=== PATIENT | female | born 1995 | race Two or more races ===

== ENCOUNTER 2017-11-19 05:20 | Emergency (ER) | payer BC ==
[2017-11-19] MEDS ORDERED: Metoclopramide IV* 5 MG/ML 2 ML VIAL IV SLOW PU ONE (05:44)
[2017-11-19] MEDS ORDERED: NS 0.9% 1000 ML* 1,000 ML IV ONE (05:44)
[2017-11-19 06:17] LABS: ABS Basophils 0.1 10^3/ul (0-0.2); ABS Eosinophils 0 10^3/ul (0-0.6); ABS Lymphocytes 0.3 10^3/ul (1.0-4.8); ABS Monocytes 0.6 10^3/ul (0-0.8); ABS Neutrophils 9.9 10^3/ul (1.5-7.7); ABS Nucleated RBC 0 10^3/ul; Eosinophil % 0.1 % (0-6); Hematocrit 44 % (35-47); Hemoglobin 15.2 g/dl (12.0-16.0); Lymphocyte % 2.8 % (25-47); Mean Corpuscular HGB Conc 34 g/dl (31-36); Mean Corpuscular Hemoglobin 31 pg (27-31); Mean Corpuscular Volume 91 fL (80-97); Mean Platelet Volume 8 um3 (7.4-10.4); Nucleated Red Blood Cells % 0.2; Platelet Count 382 10^3/ul (150-450); Red Blood Count 4.87 10^6/ul (4.0-5.4); Red Cell Distribution Width 13 % (10.5-15); White Blood Count 10.8 10^3/ul (3.5-10.8)
[2017-11-19] MEDS ORDERED: Iohexol 300* (CONTRAST) 10 ML SDV IV ONE (07:42)
[2017-11-19 08:05] LABS: Urine Appearance Clear; Urine Blood Negative (Negative); Urine Color Yellow; Urine Ketones 2+ (Negative); Urine Protein Negative (Negative); Urine Specific Gravity 1.013 (1.010-1.030); Urine Urobilinogen Negative (Negative)
--- NOTE | 2017-11-19 08:33 | RAD ---
INDICATION: Vomiting. Cough. COMPARISON: No relevant prior exams available on the [facility] PACS for comparison. TECHNIQUE: Multidetector CT images were obtained from the lung bases to the ischial tuberosities with 76 mL Omnipaque 300 IV and oral contrast. Multiplanar reformation. REPORT: Unremarkable visualized inferior thorax. The liver, normally distended gallbladder, pancreas, and spleen are unremarkable. Negative for CT abnormality of the upper GI. Top normal diameter of the jejunal bowel loops at the LEFT abdomen with suggestion of long segment mild mucosal thickening. Negative for conspicuous associated perienteric inflammatory change. Negative for delay in distal propagation of contrast to suggest bowel obstruction. Unremarkable communicating partially contrast opacified appendix visualized along the RIGHT pelvic sidewall. Enteric contrast extends to the proximal sigmoid colon. Moderate stool at the sigmoid colon and rectum. Physiologic trace fluid in the cul-de-sac. Negative for free air or hernias. Normal adrenal glands. Unremarkable kidneys with symmetric nephrograms and pyelograms. No abnormality along the course of the nondilated ureters or at the partially distended urinary bladder. Unremarkable leftward deviated uterus and adnexal regions. Negative for lymphadenopathy. Normal diameter abdominal aorta and iliac arteries. Physiologic partial distention of the IVC. Negative for suspicious osseous lesions. IMPRESSION: 1. Appearance of the jejunum while nonspecific is most suggestive of mild gastroenteritis. 2. Normal appendix documented. 3. Negative for lymphadenopathy.
[2017-11-19] MEDS ORDERED: Acetaminophen TAB* 325 MG ONE (09:07)
[2017-11-19 09:10] VITALS: BP 120/72
[2017-11-19] MEDS ORDERED: Acetaminophen TAB* 325 MG PO ONE (09:10)
--- NOTE | 2017-11-19 09:57 | ED ---
Ankit Amato Angela, scribed for Saroj Marquez MD on 11/19/17 at 0829 . Progress - Progress Note Progress Note: This pt was signed out by Dr. Lynn, pending disposition, awaiting CT abdomen/ pelvis. Pt is a 21 y/o female presenting to [facility] c/o RLQ abd pain and intermittent vomiting since 21:30 last night. Physical Exam: VITAL SIGNS: Reviewed. GENERAL: Patient is a well-developed and nourished female who is lying comfortable in the stretcher. Patient is not in any acute respiratory distress. HEAD AND FACE: Normocephalic and atraumatic. EYES: PERRLA, EOMI x 2, No injected conjunctiva. EARS: Hearing grossly intact. Ear canals and tympanic membranes are WNL. MOUTH: Oropharynx within normal limits. NECK: Supple, trachea is midline, no adenopathy, no JVD. CHEST: Symmetric, no tenderness at palpation LUNGS: Clear to auscultation bilaterally. No wheezing or crackles. CVS: RRR, S1 and S2 present, no murmurs or gallops appreciated. ABDOMEN: Soft. Right lower quadrant abdominal tenderness. No signs of distention. Positive bowel sounds. No rebound no guarding, and no masses palpated. No abdominal bruit or pulsations. EXTREMITIES: FROM in all major joints, no edema, no cyanosis or clubbing. NEURO: Alert and oriented x 3. No acute neurological deficits. Speech is normal. SKIN: Dry and warm CT abdomen/pelvis, as read by radiologist: IMPRESSION: 1. Appearance of the jejunum while nonspecific is most suggestive of mild gastroenteritis. 2. Normal appendix documented. 3. Negative for lymphadenopathy. Dr. Marquez has reviewed this radiology report. MDM: Pt was signed out by Dr. Lynn to follow up on the CT abdomen/pelvis results. If negative, Dr. Lynn reports the pt can be discharged home. CT abdomen/pelvis shows appearance of the jejunum while nonspecific is most suggestive of mild gastroenteritis. In the ED course the pt was given IV fluids and Reglan. Therefore the pt will be discharged to home with follow up from her PCP. She is instructed to follow up with her PCP. Pt will be discharged to home, in stable condition, with a diagnosis of gastroenteritis. Condition: Stable Disposition: Home Re-Evaluation - Re-Evaluation First Eval Re-Evaluation Time: 07:45 Comment: Pt is awaiting the CT scan. Course/Dx - Diagnoses Provider Diagnoses: Gastroenteritis The documentation as recorded by the Ankit peng Angela accurately reflects the service I personally performed and the decisions made by me, Saroj Marquez MD.
--- NOTE | 2017-11-19 19:21 | ED ---
Estephania Amato Nilda, scribed for Alberto Lynn MD on 11/19/17 at 0548 . GI/ HPI - HPI Summary HPI Summary: This patient is a 21 year old F presenting to [facility] accompanied by boyfriend with a chief complaint of intermittent vomiting every 2 hours since 2129. The patient rates the pain 4/10 in severity. Symptoms aggravated and alleviated by nothing. Patient reports RLQ discomfort and mild loss of appetite, but denies fever and diarrhea. Last BM was yesterday morning. Medications include control. - History of Current Complaint Chief Complaint: EDNauseaVomitDiarrh Stated Complaint: VOMITING Hx Obtained From: Patient Onset/Duration: Started Hours Ago, Still Present Timing: Intermittent, Lasting Hours - episode every 2 hours Current Severity: Moderate Pain Intensity: 4 Location of Pain: RLQ Associated Signs and Symptoms: Positive: Vomiting, Other: - mild loss of appetite, but denies fever and diarrhea Aggravating Factor(s): Nothing Alleviating Factor(s): Nothing - Allergy/Home Medications Allergies/Adverse Reactions: Allergies Allergy/AdvReac Type Severity Reaction Status Date / Time No Known Allergies Allergy Verified 11/19/17 05:24 PMH/Surg Hx/FS Hx/Imm Hx Sensory History: Denies: Hx Legally Blind EENT History: Denies: Hx Deafness Infectious Disease History: No Infectious Disease History: Denies: Traveled Outside the [place] in Last 30 Days - Family History Known Family History: Positive: Diabetes Negative: Hypertension Review of Systems Negative: Fever Positive: Abdominal Pain - RLQ discomfort, Vomiting, Other - loss of appetite. Negative: Diarrhea All Other Systems Reviewed And Are Negative: Yes Physical Exam - Summary Physical Exam Summary: VITAL SIGNS: Reviewed. GENERAL: Patient is a well-developed and nourished female who is lying comfortable in the stretcher. Patient is not in any acute respiratory distress. HEAD AND FACE: No signs of trauma. No ecchymosis, hematomas or skull depressions. No sinus tenderness. EYES: PERRLA, EOMI x 2, No injected conjunctiva, no nystagmus. EARS: Hearing grossly intact. Ear canals and tympanic membranes are within normal limits. MOUTH: Oropharynx within normal limits. NECK: Supple, trachea is midline, no adenopathy, no JVD, no carotid bruit, no c- spine tenderness, neck with full ROM. CHEST: Symmetric, no tenderness at palpation LUNGS: Clear to auscultation bilaterally. No wheezing or crackles. CVS: Regular rate and rhythm, S1 and S2 present, no murmurs or gallops appreciated. ABDOMEN: Soft, Mild RLQ tenderness with deep palpation. No signs of distention. No rebound no guarding, and no masses palpated. Bowel sounds are normal. EXTREMITIES: FROM in all major joints, no edema, no cyanosis or clubbing. NEURO: Alert and oriented x 3. No acute neurological deficits. Speech is normal and follows commands. SKIN: Dry and warm Triage Information Reviewed: Yes Vital Signs On Initial Exam: Initial Vitals Temp Pulse Resp BP Pulse Ox 98.4 F 115 20 121/74 100 11/19/17 05:24 11/19/17 05:24 11/19/17 05:24 11/19/17 05:24 11/19/17 05:24 Vital Signs Reviewed: Yes Diagnostics - Vital Signs Vital Signs Temp Pulse Resp BP Pulse Ox 11/19/17 05:24 98.4 F 115 20 121/74 100 - Laboratory Result Diagrams: 11/19/17 05:52 11/19/17 05:52 Lab Statement: Any lab studies that have been ordered have been reviewed, and results considered in the medical decision making process. GIGU Course/Dx - Course Assessment/Plan: Pt is 21 y/o presenting with vomiting since last night. On exam , RLQ tenderness on palpation. Pt s/o to Dr. Marquez, pending dispo, awaiting CT Abd/Pel. Dx abd pain. - Diagnoses Provider Diagnoses: Abdominal pain Discharge - Discharge Plan Condition: Stable Disposition: OTHER Discharge Disposition Comment: Pt s/o to Dr. Marquez, pending dispo, awaiting CT Abd/Pel. Referrals: No Primary Care Phys,NOPCP [Primary Care Provider] - The documentation as recorded by the Estephania peng Nilda accurately reflects the service I personally performed and the decisions made by me, Alberto Lynn MD.
== END 2017-11-19 09:03 ==
LOC: ED 05:20
DX: K52.9 Noninfective gastroenteritis and colitis, unspecified (principal); R10.31 Right lower quadrant pain; R11.10 Vomiting, unspecified
CPT/HCPCS: 36415; 74177; 80053; 81003; 82150; 83690; 83735; 84702; 85025; 86140; 96374; 96375; 99283; A9270-GY; J2765; Q9967

== ENCOUNTER 2019-05-25 08:03 | Emergency (ER) | payer BC ==
[2019-05-25 08:28] VITALS: BP 129/97
--- NOTE | 2019-05-25 08:49 | ED ---
Skin Complaint - HPI Summary HPI Summary: 23 yr old female with one week of rash. The rash initially started on the abdomen, and then arms and legs and back and face. It is itchy. No scabs or tracts. No fever or chills. She started to get a cold about two days ago as she is a teaching in public school. No other people in house have a rash. She has no other complaints. - History of Current Complaint Chief Complaint: UCRas Time Seen by Provider: 05/25/19 08:35 Stated Complaint: RASH Hx Last Menstrual Period: one week ago Pain Intensity: 0 - Allergy/Home Medications Allergies/Adverse Reactions: Allergies Allergy/AdvReac Type Severity Reaction Status Date / Time camphor [From Vicks Vaporub] Allergy Rash Verified 05/25/19 08:30 eucalyptus Allergy Rash Verified 05/25/19 08:30 [From Vicks Vaporub] menthol [From Vicks Vaporub] Allergy Rash Verified 05/25/19 08:30 petrolatum,white Allergy Rash Verified 05/25/19 08:30 [From Vicks Vaporub] turpentine oil Allergy Rash Verified 05/25/19 08:30 [From Vicks Vaporub] Fake [place] trees r/t Allergy Rash Uncoded 05/25/19 08:30 flame sarah Home Medications: Home Medications Hydrocortisone/Oatmeal/Aloe/E [Aveeno 1% Cream] 28 gm TP ONCE PRN 05/25/19 [ History Confirmed 05/25/19] Loratadine [Claritin] 10 mg PO DAILY PRN 05/25/19 [History Confirmed 05/25/19] PMH/Surg Hx/FS Hx/Imm Hx Endocrine/Hematology History: Denies: Hx Diabetes Cardiovascular History: Denies: Hx Hypertension History: Denies: Hx Renal Disease Sensory History: Denies: Hx Legally Blind, Hx Deafness Opthamlomology History: Denies: Hx Legally Blind Infectious Disease History: No Infectious Disease History: Denies: Traveled Outside the [place] in Last 30 Days - Family History Known Family History: Positive: Diabetes Negative: Hypertension - Social History Occupation: Employed Full-time Alcohol Use: Occasionally Substance Use Type: Reports: None Smoking Status (MU): Never Smoked Tobacco Review of Systems Constitutional: Negative Positive: Rash All Other Systems Reviewed And Are Negative: Yes Physical Exam Triage Information Reviewed: Yes Vital Signs On Initial Exam: Initial Vitals Temp Pulse Resp BP Pulse Ox 98.7 F 96 18 129/97 100 05/25/19 08:23 05/25/19 08:23 05/25/19 08:23 05/25/19 08:23 05/25/19 08:23 Vital Signs Reviewed: Yes Appearance: Positive: Well-Appearing, No Pain Distress Skin: Positive: Warm, Skin Color Reflects Adequate Perfusion, Other - slight red , raised rash, confluent in places, no blisters, no hives, no cellulitis. Head/Face: Positive: Normal Head/Face Inspection Eyes: Positive: EOMI, Conjunctiva Clear ENT: Positive: Normal ENT inspection Neck: Positive: Nontender Respiratory/Lung Sounds: Positive: Clear to Auscultation, Breath Sounds Present Cardiovascular: Positive: RRR Abdomen Description: Negative: Distended Musculoskeletal: Positive: Strength/ROM Intact Neurological: Positive: Sensory/Motor Intact, Alert, Oriented to Person Place, Time, CN Intact II-III, Normal Gait, Speech Normal Psychiatric: Positive: Normal Diagnostics - Vital Signs Vital Signs Temp Pulse Resp BP Pulse Ox 05/25/19 08:23 98.7 F 96 18 129/97 100 - Laboratory Lab Statement: Any lab studies that have been ordered have been reviewed, and results considered in the medical decision making process. Course/Dx - Course Course Of Treatment: 23 yr old with rash, itchy, Do not believe scabies, and do not believe infections. Will treat as dermatitis outbreak. - Diagnoses Provider Diagnoses: Dermatitis Discharge ED - Sign-Out/Discharge Documenting (check all that apply): Patient Departure All imaging exams completed and their final reports reviewed: No Studies - Discharge Plan Condition: Good Disposition: HOME Prescriptions: methylPREDNISolone [Medrol] 4 mg PO .PER MARA #1 [email or web address] Patient Education Materials: Dermatitis (ED) Referrals: Ruthy Hannah MD [Primary Care Provider] - 2 Days - Billing Disposition and Condition Condition: GOOD Disposition: Home
== END 2019-05-25 08:45 | disposition home or self-care (01) ==
LOC: UCCORT 08:03
DX: L30.9 Dermatitis, unspecified (principal); Z91.048 Other nonmedicinal substance allergy status
CPT/HCPCS: 99212; G0463